=== PATIENT | male | born 1985 | race Native Hawaiian/Other Pacific Islander ===

== ENCOUNTER 2018-06-18 22:57 | Emergency (ER) | payer SELFPAY ==
--- NOTE | 2018-06-18 23:21 | C.PDOC ---
History Of Present Illness 33 yr old male w/ hx of etoh abuse, pancreatitis p/w abdominal pain, nausea, vomiting x2d. Abdominal pain is burning, occured after drinking etoh, from epigastric area up to his throat, has occured previously and was dx with alcoholic gastritis in ramy. He also notes one episode of dysuria which resolved, but no dark or bloody stool. No chest pain or sob. No constipation or diarrhea. x5 episodes of vomiting since yesterday, non coffee ground or jordi blood. No headache, fever, chills or night sweats. No trauma or falls. No new medications or new foods. No other complaints. Time Seen by Provider: 06/18/18 23:21 Chief Complaint (Nursing): Abdominal Pain Past Medical History Vital Signs: Last Vital Signs Temp 98.5 F 06/18/18 23:09 Pulse 108 H 06/18/18 23:09 Resp 20 06/18/18 23:09 BP 134/93 H 06/18/18 23:09 Pulse Ox 100 06/18/18 23:09 - Medical History PMH: Pancreatitis Family History: States: Unknown Family Hx - Social History Hx Alcohol Use: Yes Hx Substance Use: No - Immunization History Hx Tetanus Toxoid Vaccination: No Hx Influenza Vaccination: No Hx Pneumococcal Vaccination: No Review Of Systems Constitutional: Negative for: Fever, Chills Eyes: Negative for: Pain, Vision Change ENT: Negative for: Ear Pain, Ear Discharge, Nose Pain, Mouth Pain, Mouth Swel ling, Throat Swelling, Other Cardiovascular: Negative for: Chest Pain, Palpitations, Edema Respiratory: Negative for: Cough, Shortness of Breath Gastrointestinal: Positive for: Nausea, Vomiting, Abdominal Pain. Negative for: Diarrhea, Constipation, Melena, Hematochezia, Hematemesis Genitourinary: Positive for: Dysuria. Negative for: Frequency, Incontinence, Hematuria, Penile Discharge, Scrotal Pain, Rash, Penile Pain Musculoskeletal: Negative for: Neck Pain, Leg Pain Skin: Negative for: Rash, Lesions, Jaundice Neurological: Negative for: Weakness, Numbness, Headache Psych: Negative for: Anxiety, Depression Physical Exam - Physical Exam Appears: Well, Non-toxic, No Acute Distress Skin: Normal Color, Warm Head: Atraumatic, Normacephalic Eye(s): bilateral: Normal Inspection, PERRL, EOMI Ear(s): Bilateral: Normal Nose: Normal, No Flaring Oral Mucosa: Moist Tongue: Normal Appearing Teeth: Normal Dentition Throat: Normal, No Erythema, No Exudate Neck: Normal, Normal ROM, Supple, Other (no meningeal signs) Chest: Symmetrical Cardiovascular: Rhythm Regular Respiratory: Normal Breath Sounds, No Decreased Breath Sounds Gastrointestinal/Abdominal: Soft, Tenderness (periumbilical, suprapubic and epigastric), No Organomegaly, No Mass, No Distention, No Guarding, No Rebound, No Ascites Back: Normal Inspection, No CVA Tenderness Extremity: Normal ROM, No Tenderness Extremity: Bilateral: Hips Non-Tender Neurological/Psych: Oriented x3, Normal Speech, Normal Cognition, Normal Motor Gait: Steady ED Course And Treatment - Laboratory Results Result Diagrams: 06/18/18 23:37 06/18/18 23:37 O2 Sat by Pulse Oximetry: 100 Medical Decision Making Medical Decision Makin yr old male p/w signs and symptoms concerning for alcohol gastritis vs pancreatitis vs appendicits. will seek labs and imaging. x1 episode of dysuria w/ out painful defecation, difficulty urinating, dull ache. No penile d/c or scrotum pain. No recent rashes or lymphadenopathy noted. pending imaging and labs EK, nsr, no stemi [address] w/ cystitis like findings. No prostatitis like findings. No pain on repeat abd exam. remains w/ out RUQ pain. Abd pain resolved per pt. Elevated LFTs: ETOH: AST > ALT . No signs of hepatic encephalopathy Lipase WNL No penile d/c or rash No scrotal pain per pt tolerating [facility] will rx uti and have pt w/ uro and GI- also endorsed to decrease/discontinue ETOH. Pt agreeable to plan Disposition - Disposition Disposition Time: 04:59 Condition: GOOD Forms: [employer] ([place]) - Clinical Impression Clinical Impression: UTI (urinary tract infection), Alcoholic hepatitis
[2018-06-18] MEDS ORDERED: Sodium Chloride 0.9% 1,000 ML IV SCH (23:30)
[2018-06-18] MEDS ORDERED: Sodium Chloride 0.9% 1,000 ML ONE (23:39)
[2018-06-18 23:44] LABS: BASO % 0.8 % (0.0-2.0); EOS # 0.2 K/uL (0.0-0.7); EOS % 2.9 % (0.0-4.0); HEMOGLOBIN 18.4 g/dL (12.0-18.0); LYMPH # 1.7 K/uL (1.0-4.3); LYMPH % 28.4 % (20.0-40.0); MEAN CELL VOLUME 103.7 fL (80.0-94.0); MEAN CORPUSCULAR HEMOGLOBIN 35.7 pg (27.0-31.0); MEAN CORPUSCULAR HGB CONC 34.4 g/dL (33.0-37.0); MEAN PLATELET VOLUME 8.1 fL (7.2-11.7); MONO # 0.6 K/uL (0.0-0.8); MONO % 9.6 % (0.0-10.0); NEUT # 3.4 K/uL (1.8-7.0); NEUT % 58.3 % (50.0-75.0); NRBC % 0.1 % (0.0-2.0); RBC 5.15 Mil/uL (4.40-5.90); RED CELL DISTRIBUTION WIDTH 15.7 % (11.5-14.5); WHITE BLOOD COUNT 5.9 K/uL (4.8-10.8)
[2018-06-18 23:53] LABS: ALB/GLOB RATIO 1.1 (1.0-2.1); ALBUMIN 5.2 g/dL (3.5-5.0); ALT/SGPT 191 U/L (21-72); AST/SGOT 614 U/L (17-59); BLOOD UREA NITROGEN 3 mg/dL (9-20); CALCIUM 9.2 mg/dl (8.6-10.4); GFR NON-AFRICAN AMERICAN > 60; LIPASE 152 U/L (23-300)
[2018-06-19 00:21] LABS: SQUAMOUS EPITHIAL < 1 /hpf (0-5); URINE BACTERIA RARE (<OCC); URINE BILIRUBIN 1+ (NEGATIVE); URINE BLOOD NEGATIVE (NEGATIVE); URINE CLARITY Clear (Clear); URINE COLOR Amber (YELLOW); URINE GLUCOSE (UA) NORMAL (Normal); URINE LEUKOCYTE ESTERASE NEG Leu/uL (Negative); URINE PROTEIN 1+ mg/dL (NEGATIVE)
[2018-06-19] MEDS ORDERED: Iodixanol 320 MG/ML 100 ML BOTTLE IV ONE (01:19)
[2018-06-19 05:13] VITALS: BP 130/80; PULSE 81; RESP 16; TEMP 98.8; O2SAT 99
--- NOTE | 2018-06-19 10:22 | CT ---
Date of service: 06/19/2018 PROCEDURE: CT Abdomen and Pelvis with and without intravenous contrast HISTORY: epigastric/ shelley-umbilical pain COMPARISON: None. TECHNIQUE: Axial images of the abdomen were obtained in the pre contrast, portal venous and delayed phases of enhancement. Coronal and sagittal reformats were generated. Contrast dose: Radiation dose: Total exam DLP = 267.1 mGy-cm. This CT exam was performed using one or more of the following dose reduction techniques: Automated exposure control, adjustment of the mA and/or kV according to patient size, and/or use of iterative reconstruction technique. FINDINGS: LOWER THORAX: Unremarkable. LIVER: Unremarkable. No gross lesion or ductal dilatation. GALLBLADDER AND BILE DUCTS: Unremarkable. PANCREAS: Unremarkable. No gross lesion or ductal dilatation. SPLEEN: Unremarkable. ADRENALS: Unremarkable. No mass. KIDNEYS AND URETERS: Unremarkable. No hydronephrosis. No solid mass. VASCULATURE: Unremarkable. No aortic aneurysm. No aortic atherosclerotic calcification or mural plaque present. BOWEL: Unremarkable. No obstruction. No gross mural thickening. APPENDIX: Normal appendix. PERITONEUM: Unremarkable. No free fluid. No free air. LYMPH NODES: Unremarkable. No enlarged lymph nodes. BLADDER: Unremarkable. REPRODUCTIVE: Unremarkable. BONES: No acute fracture. OTHER FINDINGS: None. IMPRESSION: Unremarkable pre and post contrast enhanced CT of the abdomen and pelvis.
--- NOTE | 2018-06-20 14:16 | CARD ---
APPROVED REPORT Date of service: 06/18/2018 EKG Measurement Heart [id number] <Conclusion> Normal sinus rhythm Normal ECG
== END 2018-06-19 05:34 | disposition home or self-care (01) ==
LOC: C.ER 22:57
DX: N39.0 Urinary tract infection, site not specified (principal); K70.10 Alcoholic hepatitis without ascites
CPT/HCPCS: 74177; 80053; 81001; 83690; 85025; 87086; 93005; 96374; 99285; J2405; J7030; Q9967